=== PATIENT | male | born 1940 | race Caucasian/White ===

== ENCOUNTER 2017-08-12 05:30 | Day surgery (SDC) | payer MEDICARE ==
[2017-08-09 11:33] VITALS: BMI 32.8
[2017-08-12] MEDS ORDERED: EPINEPHrine 1 MG/ML AMP ONE (07:02)
[2017-08-12] MEDS ORDERED: Lidocaine 1% w/Epinephrine 1:200K 30 ML VIAL ONE (07:02)
[2017-08-12] MEDS ORDERED: Fentanyl 100 MCG/2 ML VIAL ONE (07:23)
[2017-08-12] MEDS ORDERED: CEFAZOLIN/Water 2 GM/20 ML SYRINGE ONE (07:29)
[2017-08-12] MEDS ORDERED: Propofol 200 MG/20 ML VIAL ONE (07:45)
[2017-08-12] MEDS ORDERED: Dexamethasone 20 MG/5 ML VIAL ONE (07:45)
[2017-08-12] MEDS ORDERED: Ondansetron HCl/PF 4 MG/2 ML Vial ONE (07:45)
[2017-08-12] MEDS ORDERED: Bacitracin Zinc Ointment 30 gm TUBE ONE (08:30)
--- NOTE | 2017-08-12 11:23 | OP ---
DATE OF PROCEDURE: 08/12/2017 PREOPERATIVE DIAGNOSIS: Basal cell carcinoma of the nose ([id number]). POSTOPERATIVE DIAGNOSIS: Basal cell carcinoma of the nose ([id number]). PROCEDURE: 1. Wide excision basal cell carcinoma of the nose (3.4 cm including adequate margins) (09199). 2. Forehead flap for nasal reconstruction. (29248). 3. Complex closure forehead (9 cm), ([id number], [id number]. PROCEDURE: Following induction of adequate anesthesia, the patient was prepped and draped in the [facility] sterile fashion in the supine position. The patient's basal cell carcinoma of the dorsal nose w as widely excised in anatomic subunit including adequate margins. Frozen section analysis came back as margins clear. The defect was too large to close primarily. A forehead flap reconstruction was chosen. The parame jatinder forehead flap was designed and elevated in a deep plane and inset using a combination of interr upted and running 5-0 Prolene suture. The forehead defect was then closed with undermining of the flap laterally from the defect in each d irection. This allowed for a proper 3-0 tension free closure with 3-0 PDS suture and 3-0 Monocryl s uture. The patient tolerated the procedure well. All surgical morris were irrigated and inspected for meti culous hemostasis prior to closure.
--- NOTE | 2017-08-12 22:06 | EKG ---
Test Reason : PREOP Blood Pressure : / mmHG Vent. Rate : 055 BPM Atrial Rate : 055 BPM P-R Int : 264 ms QRS Dur : 180 ms QT Int : 508 ms P-R-T Axes : 043 001 062 degrees QTc Int : 485 ms Sinus bradycardia with 1st degree A-V block Left bundle branch block Abnormal ECG No previous ECGs available Confirmed by DR. Monica MELVIN MD ([id number]) on 08/12/2017 10:05:44 PM Referred By: KOTA Confirmed By:DR. Monica MELVIN MD
== END 2017-08-12 11:00 | disposition home or self-care (01) ==
LOC: SDC 05:30
PROVIDERS: ATTEND Plastic Surgery
PROC: 0HB1XZZ Excision of Face Skin, External Approach (ICD-10-PCS; principal; 2017-08-12)
PROC: 0HX1XZZ Transfer Face Skin, External Approach (ICD-10-PCS; 2017-08-12)
PROC: 0HQ1XZZ Repair Face Skin, External Approach (ICD-10-PCS; 2017-08-12)
DX: C44.311 Basal cell carcinoma of skin of nose (principal); Z80.9 Family history of malignant neoplasm, unspecified
CPT/HCPCS: 88305; 88331; 88332; 93005; 93010; J0171; J1100; J2405; J2704; J3010